=== PATIENT | male | born 1995 | race Caucasian/White ===

== ENCOUNTER 2017-10-08 15:31 | Emergency (ER) | payer SELFPAY ==
--- NOTE | 2017-10-08 15:47 | ED Physician Documentation ---
Skin Rash - HISTORIAN Historian: patient - HPI Chief Complaint: Skin Rash Additional Information: x 2 days, induration, with central ulceration, he pulled scab off and as been squeezing it. Onset: days ago Timing: still present Duration: persistent since Location: RLE Quality: painful Identified Cause?: No Context: Medication Exposure: none Context: Food Exposure: none Further Comments: no - ROS CONST: none CVS/RESP: none EYES/ENT: none GI/: none MS/SKIN/LYMPH: none NEURO/PSYCH: none - PAST HX Past History: none Other History: none Surgeries/Procedures: No Immunizations: UTD Allergies/Adverse Reactions: Allergies Allergy/AdvReac Type Severity Reaction Status Date / Time pertussis vaccine,adsorbed Allergy Unknown Verified 07/06/16 10:09 [Pertussis Vaccine,Adsorbed] Home Medications: Ambulatory Orders Medication Instructions Recorded NK [NK] 07/06/16 - SOCIAL HX Smoking History: cigarettes Alcohol Use: none Drug Use: none - FAMILY HX Family History: none - VITAL SIGNS Vital Signs: Vital Signs Temp Pulse Resp BP Pulse Ox 118/64 07/06/16 13:47 - REVIEWED ASSESSMENTS Nursing Assessment Reviewed: Yes Vitals Reviewed: Yes Skin Rash Physical Exam - EXAM General Appearance: no acute distress Skin: warm,dry Location: extremities Symptoms: warmth, tenderness, swelling, induration Extremities: non-tender EENT: eyes nml inspection Respiratory: no resp distress Neuro/Psych: oriented x3 Discharge Clincal Impression: Cellulitis Qualifiers: Site of cellulitis: extremity Site of cellulitis of extremity: lower extremity Laterality: right Qualified Code(s): L03.115 - Cellulitis of right lower limb Referrals: Primary Doctor,No [Primary Care Provider] - 2 Days Condition: Good Disposition: 01 HOME, SELF-CARE Decision to Admit: NO Date of Decison to Admit: 10/08/17 Decision Time: 15:47
[2017-10-08 16:06] VITALS: BP 142/85
== END 2017-10-08 15:53 | disposition home or self-care (01) ==
LOC: ED 15:31
DX: L03.115 Cellulitis of right lower limb (principal)
CPT/HCPCS: 99282